=== PATIENT | female | born 1995 | race African-American/Black ===

== ENCOUNTER 2021-08-28 03:16 | Emergency (ER) | payer MEDICAID ==
[~2021-08-28] VITALS: Ht 160 cm; Wt 46.4 kg
[2021-08-28 08:45] LABS: BASOPHILS % 0.6 % (0.0-2.0); EOSINOPHILS % 0.1 % (0.0-5.0); HEMATOCRIT. 40.8 % (36.0-48.0); HEMOGLOBIN. 13.3 g/dL (12.0-16.0); LYMPHOCYTES % 20.1 % (20.0-50.0); MEAN CORPUSCULAR HEMOGLOBIN 32.5 pg (28.0-32.0); MEAN CORPUSCULAR VOLUME 99.6 fL (81.0-99.0); MEAN PLATELET VOLUME 9.7 fl (7.4-10.4); MONOCYTES % 3.7 % (2.0-8.0); NEUTROPHILS % 75.5 % (40.0-76.0); PLATELET 275 x1000/uL (130-400); RED CELL DISTRIBUTION WIDTH 12.2 % (11.6-14.6)
[2021-08-28 08:56] LABS: CHLORIDE 105 mEq/L (98-107)
[2021-08-28 09:00] LABS: HCG SCREEN NEGATIVE
[2021-08-28] MEDS ORDERED: METR-167 MT (11:28)
[2021-08-28 11:45] VITALS: BP 129/76
== END 2021-08-28 11:45 | disposition home or self-care (01) ==
LOC: ER 03:16
DX: R11.2 Nausea with vomiting, unspecified (principal); N76.0 Acute vaginitis
CPT/HCPCS: 36415; 71045; 80053; 81025; 84703; 85025; 99284

== ENCOUNTER 2021-09-02 19:47 | Emergency (ER) | payer OTHER ==
[~2021-09-02] VITALS: Ht 162.6 cm; Wt 48.2 kg
[~2021-09-02 19:47] MED LIST: METR-167 MT
[2021-09-02 20:27] VITALS: BP 118/77
[2021-09-02] MEDS ORDERED: ACETAMINOPHEN 325MG TABLET PO ONE (22:30)
[2021-09-02] MEDS ORDERED: IBUPROFEN 400MG TABLET PO ONE (22:30)
== END 2021-09-02 23:10 | disposition left against medical advice (07) ==
LOC: ER 19:47
DX: Z53.21 Procedure and treatment not carried out due to patient leaving prior to being seen by health care provider (principal)
CPT/HCPCS: 99281

== ENCOUNTER 2022-01-06 19:49 | Emergency (ER) | payer OTHER ==
[~2022-01-06] VITALS: Ht 160 cm; Wt 51.0 kg
[2022-01-06] MEDS ORDERED: HYDROCODONE/ACETAMINOPHEN 5/325MG TABLET PO STA (20:08)
[2022-01-06 20:48] LABS: BASOPHILS % 0.6 % (0.0-2.0); EOSINOPHILS % 1.3 % (0.0-5.0); HEMATOCRIT. 38.5 % (36.0-48.0); HEMOGLOBIN. 12.6 g/dL (12.0-16.0); LYMPHOCYTES % 32.1 % (20.0-50.0); MEAN CORPUSCULAR HEMOGLOBIN 32.9 pg (28.0-32.0); MEAN CORPUSCULAR VOLUME 100.3 fL (81.0-99.0); MEAN PLATELET VOLUME 9.5 fl (7.4-10.4); MONOCYTES % 6.7 % (2.0-8.0); NEUTROPHILS % 59.3 % (40.0-76.0); PLATELET 245 x1000/uL (130-400); RED BLOOD CELL COUNT 3.84 mill/uL (4.2-5.4); RED CELL DISTRIBUTION WIDTH 12.3 % (11.6-14.6)
[2022-01-06 20:51] LABS: CHLORIDE 104 mEq/L (98-107)
[2022-01-06 21:01] VITALS: BP 114/74
[2022-01-06] MEDS ORDERED: ALBUTEROL 6.7GM HFA INHALER ORI NR (21:45)
[2022-01-06] MEDS ORDERED: ALBUTEROL (0.083%) 2.5MG/3ML NEB HHN NR (22:15)
[2022-01-06] MEDS ORDERED: ALBU6.7H3 INH (22:34)
== END 2022-01-06 22:42 | disposition home or self-care (01) ==
LOC: ER 19:49
DX: R07.89 Other chest pain (principal); R06.02 Shortness of breath
CPT/HCPCS: 36415; 71045; 80053; 83880; 84484; 85025; 93005; 99285

== ENCOUNTER 2023-11-30 20:12 | Emergency (ER) | payer OTHER ==
[~2023-11-30 20:12] MED LIST changes: +ALBU6.7H3 INH
== END 2023-11-30 21:16 | disposition left against medical advice (07) ==
LOC: ER 20:12
DX: R06.02 Shortness of breath (principal); Z53.21 Procedure and treatment not carried out due to patient leaving prior to being seen by health care provider